=== PATIENT | male | born 1975 | race Caucasian/White ===

== ENCOUNTER 2021-11-08 09:16 | Emergency (ER) | payer OTHER ==
[2021-11-08] MEDS ORDERED: Ibuprofen 800 MG TAB ONE (09:30)
== END 2021-11-08 10:04 | disposition home or self-care (01) ==
LOC: MADERS 09:16
DX: J02.9 Acute pharyngitis, unspecified (principal); J34.89 Other specified disorders of nose and nasal sinuses; R51.9 Headache, unspecified; R05.9 Cough, unspecified; R19.7 Diarrhea, unspecified; E11.9 Type 2 diabetes mellitus without complications; I10 Essential (primary) hypertension; F17.210 Nicotine dependence, cigarettes, uncomplicated
CPT/HCPCS: 36416; 87804; 99283